=== PATIENT | male | born 1945 | race Caucasian/White ===

== ENCOUNTER 2016-12-13 09:45 | Emergency (ER) | payer MEDICARE, OTHER ==
[~2016-12-13] VITALS: Ht 167.6 cm; Wt 102.0 kg
[~2016-12-13 09:45] MED LIST: ALPR0.5T6 PO; ASPI-664 PO; ATOR40TA68 PO; BENA40TA41 PO; CLIN-73 PO; CLOP75TA27 PO; ESCI10TA PO; GABA300C16 PO; GLIM4TAB PO; JARDIANCE PO; MIRT15TA5 PO; MTF1000T PO; PENI500T PO; TEMA15CA PO; ZOLP5TAB PO
[2016-12-13 09:49] VITALS: Ht 167.6 cm; Wt 102.0 kg
[2016-12-13] MEDS ORDERED: IBUPROFEN 600 MG TAB PO ONE (10:30)
[2016-12-13] MEDS ORDERED: BUPIVACAINE 0.25% (MPF) 30 ML INJ INJ ONE (10:30)
[2016-12-13] MEDS ORDERED: CYCLOBENZAPRINE 10 MG TAB PO ONE (10:30)
--- NOTE | 2016-12-13 11:14 | RADRPT ---
PROCEDURE: XR Wrist. CLINICAL INDICATION: Left wrist pain. TECHNIQUE: AP, oblique, scaphoid and lateral views of the left wrist were performed. COMPARISON: No prior studies are available for comparison. FINDINGS: The osseous structures are intact. No destructive bony lesions are identified. Moderate narrowing of the first carpal metacarpal joint is seen. Moderate narrowing of the scaphoid - trapezoid - trape zium articulation is observed. Soft tissues surrounding the wrist are unremarkable. 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 Moderate narrowing at the scaphoid - trapezoid - trapezium articulation. If further characterization is needed CT or MRI could be helpful. If there is high clinical suspicion for traumatic injury, further evaluation with CT should be consi dered. RPTAT: AA .Kevin Crandall MD, Date Time Electronically viewed and signed by .Kevin Crandall MD, on 12/13/2016 11:14 .P/
[2016-12-13] MEDS ORDERED: CYCL-319 PO (11:21)
[2016-12-13] MEDS ORDERED: IBUP-1542 PO (11:21)
--- NOTE | 2016-12-13 11:36 | ERD ---
ER Documentation Chief Complaint Date/Time DATE: 12/13/16 TIME: 11:26 Chief Complaint Complains of severe back pain since this am HPI 71-year-old male with multiple comorbidities is complaining of lower back pain and left wrist pain upon awake this morning. Complaining of left hand weakness. Patient has a history of stroke 2 years ago, states that all his strength and sensation had returned to normal since then. Denies falls or any other injuries. Denies fever or chills. Denies numbness or tingling. Denies weakness in any other extremities. ROS All systems reviewed and are negative except as per history of present illness. Medications Home Meds Active Scripts Cyclobenzaprine Hcl* (Cyclobenzaprine Hcl*) 10 Mg Tablet, 10 MG PO TID Y for MUSCLE SPASMS, #15 TAB Prov:RIA HERNANDEZ [employer] 12/13/16 Ibuprofen* (Motrin*) 600 Mg Tab, 600 MG PO Q6H Y for PAIN AND OR ELEVATED TEMP, #30 TAB Prov:RIA HERNANDEZ [employer] 12/13/16 Penicillin V Potassium* (Penicillin V K*) 500 Mg Tab, 500 MG PO QID for 10 Days , TAB Prov:JACQUELINE QUESADA PA-C 01/15/16 Clindamycin Hcl* (Clindamycin Hcl*) 300 Mg Capsule, 300 MG PO TID for 10 Days, CAP Prov:JACQUELINE QUESADA PA-C 01/15/16 Clopidogrel Bisulfate (Clopidogrel) 75 Mg Tab, 75 MG PO DAILY for 30 Days, TAB 5 Refills Prov:ELLE SIMONS MD 11/22/14 Reported Medications [Jardiance] No Conflict Check, 25 MG PO DAILY 11/12/14 Alprazolam* (Alprazolam*) 0.5 Mg Tablet, 0.5 MG PO BID, TAB 11/12/14 Gabapentin* (Gabapentin*) 300 Mg Capsule, 300 MG PO DAILY Y for PAIN, CAP 11/12/14 Metformin* (Glucophage*) 1,000 Mg Tablet, 1000 MG PO DAILY, TAB 11/12/14 Aspirin* (Aspirin* EC) 81 Mg Tablet.dr, 81 MG PO DAILY, TAB 11/12/14 Escitalopram Oxalate* (Lexapro*) 10 Mg Tablet, 10 MG PO DAILY, TAB 11/12/14 Benazepril Hcl* (Benazepril Hcl*) 40 Mg Tablet, 40 MG PO DAILY, TAB 04/14/14 Glimepiride* (Glimepiride*) 4 Mg Tablet, 4 MG PO WITH BREAKFAST, TAB 04/14/14 Atorvastatin* (Atorvastatin*) 40 Mg Tablet, 40 MG PO HS, TAB 04/14/14 Mirtazapine* (Mirtazapine*) 15 Mg Tablet, 7.5 MG PO HS, TAB 04/14/14 Temazepam* (Temazepam*) 15 Mg Capsule, 15 MG PO HS Y for INSOMNIA, CAP 04/14/14 Zolpidem Tartrate* (Ambien*) 5 Mg Tablet, 5 MG PO HS 07/24/10 Allergies Allergies: Coded Allergies: No Known Drug Allergy (Verified Allergy, Unknown, 11/12/14) PMhx/Soc Anesthesia Reaction: No Hx Neurological Disorder: Yes (STROKE) Hx Respiratory Disorders: No Hx Cardiac Disorders: Yes (HTN, H YPERLIPIDEMIA) Hx Psychiatric Problems: No Hx Alcohol Use: Yes (EVERYDAY, ONE WEEK AGO) Hx Substance Use: No Hx Tobacco Use: No Smoking Status: Never smoker Physical Exam Vitals Vital Signs Date Time Temp Pulse Resp B/P Pulse Ox O2 Delivery O2 Flow Rate FiO2 12/13/16 09:49 98.8 84 20 169/77 98 Physical Exam General: Well-developed, well-nourished, conscious and coherent, in no distress Skin: Warm and dry without rash, good texture and turgor Head: Normocephalic without evidence of trauma Eyes: Sclera and conjunctivae normal; pupils equal, round, and reactive to light; extraocular movements are intact Neck: Supple without meningismus or adenopathy. Carotids are equal. Trachea midline. No bruits or JVD Chest: Normal AP diameter. Good expansion without retractions. Nontender. Lungs are clear to auscultate bilaterally with good tidal volume Heart: Regular rate and rhythm. No murmur, rub, or gallops heard Abdomen: Soft and nontender without masses, guarding, or rebound. Bowel sounds are active. No hepatosplenomegaly Back: Without spinal or CVA tenderness. Bilateral paraspinal muscle spasms and tenderness noted in the lower lumbar region. Extremities: Full range of motion. Good strength bilaterally. No clubbing, cyanosis, or edema. Peripheral pulses are intact. Sensation intact. Neuro: Alert and oriented 4, GCS 15. Cranial nerves grossly intact. Motor and sensory exams nonfocal. Moves all extremities. Speech clear. Gait normal Results 24 hrs Current Medications Medications (Trade) Dose Ordered Sig/Emerald Route PRN Reason Start Time Stop Time Status Last Admin Dose Admin Bupivacaine HCl (Marcaine 0.25% (Mpf) 30 ml) 30 ml ONCE ONCE INJ 12/13/16 10:30 12/13/16 10:31 DC Ibuprofen (Motrin) 600 mg ONCE ONCE PO 12/13/16 10:30 12/13/16 10:31 DC 12/13/16 10:19 Cyclobenzaprine HCl (Flexeril) 10 mg ONCE ONCE PO 12/13/16 10:30 12/13/16 10:31 DC 12/13/16 10:19 PROCEDURE: XR Wrist. CLINICAL INDICATION: Left wrist pain. TECHNIQUE: AP, oblique, scaphoid and lateral views of the left wrist were performed. COMPARISON: No prior studies are available for comparison. FINDINGS: The osseous structures are intact. No destructive bony lesions are identified. Moderate narrowing of the first carpal metacarpal joint is seen. Moderate narrowing of the scaphoid - trapezoid - trapezium articulation is observed. Soft tissues surrounding the wrist are unremarkable. 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 Moderate narrowing at the scaphoid - trapezoid - trapezium articulation. If further characterization is needed CT or MRI could be helpful. If there is high clinical suspicion for traumatic injury, further evaluation with CT should be considered. RPTAT: AA .Kevin Crandall MD, Date Time Electronically viewed and signed by .Kevin Crandall MD, MD on 12/13/2016 11:14 .P/ CC: RIA HERNANDEZ [employer] Procedures/MDM Pleasant 71-year-old male presented to ED complaining of bilateral lower back pain since this morning. Patient does not have any midline spinal tenderness. I doubt spinal fracture, subluxation, or disc herniation. I doubt spinal epidural abscess, cauda equina syndrome. His symptoms exam findings are consistent with muscle spasm in the bilateral lower lumbar region. Procedure note: Trigger point injection Trigger point injection performed by me. 10 mL of bupivacaine is injected into the lower lumbar region. Total number muscle groups injected: 2. Patient reports improvement of pain after the trigger point injection. Patient also complaining of left hand weakness. Exam revealed normal sensation and strength in the bilateral upper extremities. No weakness is noted on exam. Patient did note to have point tenderness in the left wrist. X-ray of the left wrist showed loss moderate osteoarthritis at the first carpometacarpal joint, moderate narrowing at the [id number] articulation. Likely his wrists pain and tenderness is due to osteoarthritis. Patient was given ibuprofen and Flexeril in the ED. Patient appears well, stable for discharge and outpatient management. Medical decision making shared with patient and family. Education provided to patient and family. Patient and family expressed understanding of the plan. Medications on discharge: Ibuprofen, Flexeril. Follow-up: Primary care provider in 2-3 days or return to ED if worse. Disclaimer: Inadvertent spelling and grammatical errors are likely due to EHR/ dictation software use and do not reflect on the overall quality of patient care. Also, please note that the electronic time recorded on this note does not necessarily reflect the actual time of the patient encounter. Departure Diagnosis: Primary Impression: Back spasm Additional Impression: Left wrist pain Condition: Stable Patient Instructions: What Is Osteoarthritis?, Back Spasm, No Trauma Additional Instructions: Llame al doctor MACRIS y danii oralia BRAYDEN PARA DENTRO DE 2-3 DEVI.Dgale a la secretaria que nosotros le instruimos hacer esta brayden.Avise o llame si parks condicin se empeora antes de la brayden. Regresa aqui si peor o no mejor. RIA HERNANDEZ. MEGHANA Dec 13, 2016 11:36
[2016-12-13 11:47] VITALS: BP 160/70; PULSE 79; RESP 20; TEMP 98.8
== END 2016-12-13 11:48 | disposition home or self-care (01) ==
LOC: FTE 09:45
DX: M62.830 Muscle spasm of back (principal); M25.532 Pain in left wrist; I10 Essential (primary) hypertension; E11.9 Type 2 diabetes mellitus without complications; Z79.82 Long term (current) use of aspirin; Z79.84 Long term (current) use of oral hypoglycemic drugs

== ENCOUNTER 2017-05-01 05:27 | Inpatient (IN) | END 2017-05-05 18:45 | disposition home or self-care (01) | DRG 853 ==

== ENCOUNTER 2017-12-05 05:35 | Emergency (ER) | END 2017-12-05 10:12 | disposition home or self-care (01) ==

== ENCOUNTER 2018-11-10 09:36 | Inpatient (IN) | payer MEDICARE, OTHER ==
[~2018-11-10] VITALS: Ht 167.6 cm; Wt 99.1 kg
[~2018-11-10 09:36] MED LIST changes: -ALPR0.5T6 PO; +ALPR1TAB7 PO; -ASPI-664 PO; +ASPI-817 PO; -BENA40TA41 PO; +BENA40TA56 PO; -CLIN-73 PO; -CLOP75TA27 PO; +DAPA10TA PO; -ESCI10TA PO; -GABA300C16 PO; -JARDIANCE PO; +LIRA0.6P2 SQ; +METF100010 PO; -MTF1000T PO; +PANT40TA4 PO; -PENI500T PO; +PIOG15TA67 PO; -TEMA15CA PO; +TEMA15CA6 PO; +ZOLP10TA PO; -ZOLP5TAB PO
[2018-11-10] MEDS ORDERED: ACETAMINOPHEN 325 MG TAB PO STA (09:51)
[2018-11-10] MEDS ORDERED: CEFEPIME 2GM/50 ML (PMX) 50 ML IVPB STA (09:51)
[2018-11-10] MEDS ORDERED: VANCOMYCIN 1 GM (PMX) 250 ML IVPB ONE (10:00)
[2018-11-10] MEDS ORDERED: SODIUM CHLORIDE 0.9% 1L BAG IV* STA (10:04)
[2018-11-10] MEDS ORDERED: SOD CHLORIDE 0.9% 1,000 ML IV SCH (14:47)
[2018-11-10] MEDS ORDERED: ACETAMINOPHEN 325 MG TAB PO PRN (15:00)
[2018-11-10] MEDS ORDERED: ONDANSETRON 4 MG INJ IV PRN ×2 (15:00→18:30)
[2018-11-10] MEDS ORDERED: NITROGLYCERIN (SL) 0.4 MG TAB SL PRN (17:30)
[2018-11-10] MEDS ORDERED: ALPRAZOLAM 1 MG TAB PO PRN (18:30)
[2018-11-10] MEDS ORDERED: NACL 0.9% 3 ML SYG IV SCH (18:30)
[2018-11-10] MEDS ORDERED: DEXTROSE 50% 50 ML SYRINGE IV PRN ×2 (19:00)
[2018-11-10] MEDS ORDERED: GLUCOSE GEL 15 GRAM TUBE PO PRN ×2 (19:00)
[2018-11-10] MEDS ORDERED: GLUCAGON 1 MG INJ IM PRN (19:00)
[2018-11-10] MEDS ORDERED: GLUCOSE GEL 15 GRAM TUBE BUCCAL PRN (19:00)
[2018-11-10] MEDS: INSULIN ASPART [NOVOLOG] 3 ML PEN SC SCH (21:00)
[2018-11-10 22:15] VITALS: Ht 167.6 cm; Wt 99.1 kg
[2018-11-10 22:24] VITALS: BP 128/62; PULSE 74; RESP 18
[2018-11-10] MEDS: ZOLPIDEM 5 MG TAB PO PRN (23:24)
[2018-11-10 23:44] VITALS: BP 109/64; PULSE 72; RESP 18
[2018-11-11] VITALS (19 sets, daily range): BP systolic 106–158; BP diastolic 60–78; PULSE 58–86; RESP 14–26
[2018-11-11] MEDS: ACETAMINOPHEN 325 MG TAB PO PRN (05:10)
[2018-11-11] MEDS: metFORMIN 500 MG TAB PO SCH ×2 (08:04→17:21)
[2018-11-11] MEDS: [UNRECOGNIZED DRUG - REMARK] XX SCH ×2 (08:05→15:00)
[2018-11-11] MEDS: EMPAGLIFLOZIN 10 MG TABLET PO SCH (08:05)
[2018-11-11] MEDS: GLIMEPIRIDE 4 MG TAB PO SCH ×2 (08:05→17:21)
[2018-11-11] MEDS: BENAZEPRIL 40 MG TAB PO SCH (08:05)
[2018-11-11] MEDS: PANTOPRAZOLE (EC) 40 MG TAB PO SCH ×2 (08:05→17:20)
[2018-11-11] MEDS: ENOXAPARIN 30 MG/0.3 ML SYG SC SCH (08:17)
[2018-11-11] MEDS: INSULIN ASPART [NOVOLOG] 3 ML PEN SC SCH ×4 (08:26→21:00)
[2018-11-11] MEDS ORDERED: VICTOZA PEN SC SCH (09:00)
[2018-11-11] MEDS ORDERED: POTASSIUM CHLORIDE (SR) 20 MEQ TAB PO STA (13:38)
[2018-11-11] MEDS ORDERED: IOHEXOL 300MG/ML 30 ML BTL ONE (17:40)
[2018-11-11] MEDS ORDERED: CEFAZOLIN 1 GM INJ ONE (19:41)
[2018-11-11] MEDS ORDERED: FENTAnyl 50 MCG/ML VIAL ONE (19:41)
[2018-11-11] MEDS ORDERED: MIDAZOLAM 1 MG/ML 2 ML INJ ONE (19:41)
[2018-11-11] MEDS ORDERED: SEVOFLURANE 15 MIN ONE (19:41)
[2018-11-11] MEDS ORDERED: PROPOFOL 20 ML ONE (19:41)
[2018-11-11] MEDS ORDERED: ROCURONIUM 50 MG INJ ONE (19:41)
[2018-11-11] MEDS ORDERED: hydrALAzine 20 MG INJ IV PRN (20:00)
[2018-11-11] MEDS ORDERED: METOCLOPRAMIDE 10 MG INJ IV PRN (20:00)
[2018-11-11] MEDS ORDERED: ONDANSETRON 4 MG INJ IV PRN (20:00)
[2018-11-11] MEDS ORDERED: EPHEDrine 25 MG/5 ML SYG IV PRN (20:00)
[2018-11-11] MEDS ORDERED: HYDROmorphONE 1 MG/5 ML IV SYRINGE IV PRN ×2 (20:00)
[2018-11-11] MEDS ORDERED: LABETALOL HCL 20MG INJ IV PRN (20:00)
[2018-11-11] MEDS ORDERED: OXYCODONE/ACETAMINOPHEN (5/325) TAB PO PRN (20:00)
[2018-11-11] MEDS ORDERED: FENTAnyl 50 MCG/ML VIAL IV PRN ×2 (20:00)
[2018-11-11] MEDS ORDERED: ONDANSETRON 4 MG INJ ONE (20:08)
[2018-11-11] MEDS ORDERED: METOCLOPRAMIDE 10 MG INJ ONE (20:08)
[2018-11-11] MEDS ORDERED: SUGAMMADEX SODIUM 200 MG/2 ML VIAL IV ONE (20:08)
[2018-11-11] MEDS ORDERED: DEXAMETHASONE 4 MG/ML 5 ML INJ ONE (20:08)
[2018-11-11] MEDS: ZOLPIDEM 5 MG TAB PO PRN (22:22)
[2018-11-12] VITALS: BP_SYST 119; BP_SYST 125; BP_DIAS 61; BP_DIAS 66; PULSE 65; PULSE 75; RESP 19; RESP 21
[2018-11-12 07:51] VITALS: BP 144/65; PULSE 67; RESP 20
[2018-11-12] MEDS: EMPAGLIFLOZIN 10 MG TABLET PO SCH (07:53)
[2018-11-12] MEDS: metFORMIN 500 MG TAB PO SCH ×2 (07:53→16:53)
[2018-11-12] MEDS: PANTOPRAZOLE (EC) 40 MG TAB PO SCH ×2 (07:54→16:53)
[2018-11-12] MEDS: GLIMEPIRIDE 4 MG TAB PO SCH (07:54)
[2018-11-12] MEDS: BENAZEPRIL 40 MG TAB PO SCH (07:54)
[2018-11-12] MEDS: ENOXAPARIN 30 MG/0.3 ML SYG SC SCH (07:55)
[2018-11-12] MEDS: PATIENT'S OWN MED (CO-SIGNATURE) SC SCH (08:00)
[2018-11-12] MEDS: INSULIN ASPART [NOVOLOG] 3 ML PEN SC SCH ×5 (08:31→20:17)
[2018-11-12] MEDS: ACETAMINOPHEN 325 MG TAB PO PRN ×2 (09:05→19:23)
[2018-11-12 12:18] VITALS: BP 117/69; PULSE 88; RESP 20
[2018-11-12] MEDS ORDERED: NAPROXEN 500 MG TAB PO ONE (14:00)
[2018-11-12] MEDS ORDERED: TIZANIDINE 2 MG TAB PO ONE (14:00)
[2018-11-12 16:11] VITALS: BP 130/68; PULSE 69; RESP 20
[2018-11-12 20:00] VITALS: BP 109/62; PULSE 66; RESP 20
[2018-11-12] MEDS ORDERED: INSULIN GLARGINE [LANTus] (100 UNITS/ML) SYG SC SCH (20:00)
[2018-11-12] MEDS: ZOLPIDEM 5 MG TAB PO PRN (21:35)
[2018-11-13] VITALS: BP 122/60; RESP 20
[2018-11-13] MEDS ORDERED: ACCU-CHEK XX SCH (02:00)
[2018-11-13 04:00] VITALS: BP 114/58; PULSE 68; RESP 20
[2018-11-13] MEDS: PANTOPRAZOLE (EC) 40 MG TAB PO SCH (06:52)
[2018-11-13 07:33] VITALS: BP 114/56; PULSE 67; RESP 17
[2018-11-13] MEDS: metFORMIN 500 MG TAB PO SCH (07:52)
[2018-11-13] MEDS: BENAZEPRIL 40 MG TAB PO SCH (07:52)
[2018-11-13] MEDS: EMPAGLIFLOZIN 10 MG TABLET PO SCH (07:52)
[2018-11-13] MEDS: PATIENT'S OWN MED (CO-SIGNATURE) SC SCH (07:57)
[2018-11-13] MEDS: INSULIN ASPART [NOVOLOG] 3 ML PEN SC SCH ×2 (07:57→07:58)
[2018-11-13] MEDS: ENOXAPARIN 30 MG/0.3 ML SYG SC SCH ×2 (08:01→08:13)
== END 2018-11-13 11:00 | disposition left against medical advice (07) | DRG 872 ==
LOC: E/R 09:36 → 6WM 14:47
PROVIDERS: ADMIT Internal Medicine; ATTEND Internal Medicine
PROC: 0F798DZ Dilation of Common Bile Duct with Intraluminal Device, Via Natural or Artificial Opening Endoscopic (ICD-10-PCS; 2018-11-11)
PROC: 0FC98ZZ Extirpation of Matter from Common Bile Duct, Via Natural or Artificial Opening Endoscopic (ICD-10-PCS; 2018-11-11)
PROC: 0FPB8DZ Removal of Intraluminal Device from Hepatobiliary Duct, Via Natural or Artificial Opening Endoscopic (ICD-10-PCS; principal; 2018-11-11 19:30)
DX: A41.9 Sepsis, unspecified organism (principal); I50.30 Unspecified diastolic (congestive) heart failure; E11.8 Type 2 diabetes mellitus with unspecified complications; D69.6 Thrombocytopenia, unspecified; I11.0 Hypertensive heart disease with heart failure; K70.30 Alcoholic cirrhosis of liver without ascites; D64.9 Anemia, unspecified; K80.50 Calculus of bile duct without cholangitis or cholecystitis without obstruction; R55 Syncope and collapse; E66.9 Obesity, unspecified; Z68.35 Body mass index [BMI] 35.0-35.9, adult; E78.5 Hyperlipidemia, unspecified; G47.00 Insomnia, unspecified; Z79.4 Long term (current) use of insulin
CPT/HCPCS: 36415; 70450; 70553; 71045; 74181; 74330; 76705; 80053; 81003; 82140; 82962; 83036; 83605; 83735; 84443; 84484; 85025; 85610; 85730; 87086; 93005; 93306; 96365; 96366; 96367; 97161; 97164; C2617; J0690; J0692; J1100; J1650; J1815; J2250; J2405; J2765; J3010; J3370; J7030; Q9967